=== PATIENT | female | born 1945 | race Caucasian/White ===

== ENCOUNTER 2017-01-05 08:48 | Day surgery (SDC) | payer OTHER ==
[~2017-01-05] VITALS: Ht 127 cm; Wt 38.0 kg
[~2017-01-05 08:48] MED LIST: B12-1CHW CHEW; CALCTAB98 PO; TAB-TAB PO; TIZA4 PO; TRAM50TA PO
[2017-01-05 09:10] VITALS: BP 152/80; PULSE 67; RESP 20; TEMP 98.4; O2SAT 97
[2017-01-05 09:29] VITALS: BP 152/80; PULSE 67; RESP 20; TEMP 98.4; O2SAT 97
[2017-01-05] MEDS ORDERED: CALC500T43 PO (09:49)
[2017-01-05] MEDS ORDERED: TIZA4CAP3 PO (09:49)
[2017-01-05] MEDS ORDERED: MULTTAB67 PO (09:49)
[2017-01-05] MEDS ORDERED: B12-1CHW CHEW (09:49)
[2017-01-05] MEDS ORDERED: SODIUM CHLOR 0.9% 1000 ML IV SCH (10:00)
[2017-01-05 10:02] LABS: AUTOMATED NEUTROPHIL # 3.1 TH/MM3 (1.8-7.7); BASOPHIL % 0.5 % (0.0-2.0); HEMATOCRIT 28.7 % (35.0-46.0); HEMO FLAGS DIFF FINAL; LYMPH % 10.2 % (9.0-44.0); LYMPHOCYTE # 0.4 TH/MM3 (1.0-4.8); MEAN CELL VOLUME 108.5 FL (80.0-100.0); MEAN CORPUSCULAR HEMOGLOBIN 38.7 PG (27.0-34.0); MEAN CORPUSCULAR HGB CONC 35.6 % (32.0-36.0); NEUT % 83.3 % (16.0-70.0); PLATELET COUNT 118 TH/MM3 (150-450); RED BLOOD COUNT 2.65 MIL/MM3 (4.00-5.30); RED CELL DISTRIBUTION WIDTH 13.8 % (11.6-17.2); WHITE BLOOD COUNT 3.7 TH/MM3 (4.0-11.0)
[2017-01-05] MEDS ORDERED: LIDOCAINE 1%/EPINEPHrine 1:100,000 SOLN 20 ML VIAL ONE (11:03)
[2017-01-05] MEDS ORDERED: fentaNYL CITRATE 250 MCG/5 ML AMP ONE (11:47)
[2017-01-05] MEDS ORDERED: MIDAZOLAM HCL 5 MG/5 ML VIAL ONE (11:47)
[2017-01-05 12:45] VITALS: BP 142/68; PULSE 86; RESP 18; TEMP 98.2; O2SAT 94
[2017-01-05 13:00] VITALS: BP 140/88; PULSE 86; RESP 20; O2SAT 92
[2017-01-05] MEDS ORDERED: oxyCODONE/ACETAMINOPHEN 5 MG/325 MG TAB PO PRN (13:00)
[2017-01-05 13:12] LABS: BONE MARROW PROCESSING COMPLETE; IRON STAIN DONE; JENNER GIEMSA STAIN DONE
--- NOTE | 2017-01-05 14:22 | RADRPT ---
EXAM DATE/TIME: 01/05/2017 11:53 [place] COMPARISON: CT NEEDLE BIOPSY BONE MARROW, April 20, 2016, 11:29. INDICATIONS : Leukemia. SEDATION TIME: 40 minutes BIOPSY SITE: Left Iliac MEDICATION(S): 1.) 4 mg midazolam (Versed) IV DEVICE(S): 1.) 11 gauge Bone marrow biopsy needle MEDICAL HISTORY : Leukemia. Anemia. Leukopenia. SURGICAL HISTORY : None. ENCOUNTER: Initial ACUITY: 1 day PAIN SCORE: 0/10 LOCATION: Left iliac. A total of one core specimen(s) were obtained and sent to the laboratory for pathologic evaluation. PROCEDURE: 1. CT guided bone marrow biopsy. 2. Conscious sedation with continuous EKG and oximetry monitoring. Prior to the procedure informed consent was obtained. Any appropriate prior imaging studies were rev iewed. Using automated exposure control and adjustment of the mA and/or kV according to patient size , radiation dose was kept as low as reasonably achievable to obtain optimal diagnostic quality images . The site was prepped in a sterile fashion. Full sterile technique was used, including cap, mask, saba rile gloves and gown and a large sterile sheet. Hand hygiene and 2% chlorhexidine and/or betadine/al cohol prep was utilized per protocol for cutaneous antisepsis. The skin and subcutaneous tissues wer e infiltrated with local anesthetic solution. With CT guidance the previously identified target was localized. Biopsy was performed using the presc ribed needle as above. Following biopsy marrow aspiration was performed with repeat puncture. Adequa te hemostasis was obtained with compression at the puncture site. Conscious sedation was performed with the prescribed dosages and duration as above in the presence of an independent trained radiology nurse to assist in the monitoring of the patient. EKG and oximetry remained stable throughout the procedure. The patient tolerated the procedure well and there were no complications. The patient was sent to Radiology Outpatient Unit in stable condition. CONCLUSION: 1. Uncomplicated CT guided bone marrow aspirate. 2. Uncomplicated CT guided bone marrow biopsy. Kin Box MD on January 05, 2017 at 14:21 Board Certified Radiologist. This report was verified electronically.
== END 2017-01-05 14:40 | disposition home or self-care (01) ==
LOC: HRIP 08:48 → HRAD 08:48 → EDSTATUS 09:00 → HRAD 14:40
PROVIDERS: ATTEND Internal Medicine
DX: D61.818 Other pancytopenia (principal); D64.9 Anemia, unspecified; D72.819 Decreased white blood cell count, unspecified
CPT/HCPCS: 38221; 77012; 81206; 81207; 85025; 85097; 88184; 88185; 88237; 88264; 88280; 88305; 88311; 88313; 99152; 99153; C1830; G0364; J2250; J3010; J7030

== ENCOUNTER 2018-05-04 17:34 | Observation (INO) ==
--- NOTE | 2018-05-04 19:05 | XR ---
EXAM DATE: 05/04/2018 7:03 PM EDT AGE/SEX: 72 years / Female INDICATIONS: Right side pelvic pain, fell CLINICAL DATA: This is the patient's initial encounter. Patient reports that signs and symptoms have been present for 1 day and indicates a pain score of 6/10. MEDICAL/SURGICAL HISTORY: . Leukemia. Anemia. Leukopenia . Hardware placement right hip COMPARISON: No prior exams available for comparison. FINDINGS: There are moderately displaced fractures involving the superior and inferior pubic ramus on the right . The left pelvis is grossly intact. Hips are symmetric with previous pinning on the right. CONCLUSION: Right pubic rami fractures. Electronically signed by: Kin Blandon MD 05/04/2018 7:04 PM EDT
--- NOTE | 2018-05-04 19:05 | XR ---
EXAM DATE: 05/04/2018 7:01 PM EDT AGE/SEX: 72 years / Female INDICATIONS: Evaluate chest for trauma, fell CLINICAL DATA: This is the patient's initial encounter. Patient reports that signs and symptoms have been present for 1 day and indicates a pain score of 0/10. MEDICAL/SURGICAL HISTORY: . Leukemia. Anemia. Leukopenia . Hardware placement right hip COMPARISON: [facility], XR CHEST PA AND LAT, 04/08/2016. . FINDINGS: Stable mild biapical pleural thickening. No evidence of hemothorax or pneumothorax. Lungs are focally clear. Cardiac contours are grossly stable. Thoracic skeleton intact with severe arthritic change ag ain noted in the right shoulder. CONCLUSION: No acute disease Electronically signed by: Kin Blandon MD 05/04/2018 7:03 PM EDT
--- NOTE | 2018-05-04 19:09 | ED ---
HPI General Chief Complaint: Fall Stated Complaint: Fall/Evac Time Seen by Provider: 05/04/18 18:11 Source: patient and family Mode of arrival: EMS History of Present Illness HPI Narrative: Patient is status post slip and fall on water with hitting her head. She has pain to her right wrist and hip and right side of head with laceration. complaint: fall Onset (ago): minute(s) Fall from: standing Fall witnessed: yes, by family Place fall occurred: other (Restaurant) Loss of consciousness: none Prolonged down time: no Symptoms prior to fall: none Context: tripped/slipped Location of injury: head Location of injury - extremities: Right: arm and thigh Quality: sharp Associated symptoms (after fall): denies Related Data Home Medications Medication Instructions Recorded Confirmed No Known Home Medications 05/04/18 05/04/18 Allergies Allergy/AdvReac Type Severity Reaction Status Date / Time No Known Allergies Allergy Verified 05/04/18 18:10 Review of Systems ROS Unobtainable All other systems reviewed negative except as stated in HPI COUNT INCLUDES [facility] Medical History Medical History Arthritis (Acute) Hip fracture, right (Acute) Leukemia (Acute) Family History Family History Other No family history of disorders Social History Social History Substance History: No History of Abuse Second Hand Smoke Exposure: No Smoking Status: Never smoker How Often Do You Have a Drink Containing Alcohol: 2 to 4 times a month Recent Travel in [place] within the Last 8 Weeks: No Recent Out of Country Travel within the Last 8 Weeks: No Immunization History Tetanus Immunization: >5 Years Hx Influenza Vaccine This Season: No Exam Narrative Exam Narrative: General: 72 y/o patient in no apparent distress Skin: trauma noted to right side of head with laceration Eyes: Pupils equal, eomi ENT: no septal hematoma NECK: C-collar in place Cardiovascular: Regular rate and rhythm Respiratory: Normal respiratory effort noted, clear to auscultation bilaterally Abdomen: soft, nontender, nondistended Back: No step-offs, midline spine nontender with palpation Extremities: Pain with palpation of right wrist and hip, neurovascularly intact , no pain with rom of other joints Neuro: awake, alert, sensation and motor grossly intact Procedures Laceration Laceration 1: Site: scalp Side (If applicable): right Size (cm): 2 Description: linear Depth: simple, single layer Pre-repair:: irrigated extensively and deep structures intact Skin layer closed with: other (Dermabond) Orthopedic Fracture Reduction Fracture #1: Time Out Performed: Yes Side: right Fracture Reduction Location: radius Analgesia: procedural sedation Technique: traction/counter-traction Post Reduction X-rays Demonstrate: acceptable reduction Post-Reduction Neuro Exam: intact Post-Reduction Vascular Exam: intact Splint Applied: Yes Patient Tolerated Procedure: well Procedural Sedation Indications: fracture/dislocation reduction ASA Class: ASA 2 Moderate Systemic Disease Preparation: child daycare worker applied, pulse oximeter, capnometry used, supplemental O2 applied and suction/airway equipment at bedside IV Propofol Dose (mgs): 60 Course Initial Documented Vital Signs Temperature 98 F 05/04/18 17:41 Pulse Rate 74 05/04/18 17:41 Respiratory Rate 16 05/04/18 17:41 Blood Pressure 182/86 H 05/04/18 17:41 Pulse Oximetry 98 05/04/18 17:41 Last Documented Vital Signs Temperature 98 F 05/04/18 17:41 Pulse Rate 86 05/04/18 23:03 Respiratory Rate 16 05/04/18 23:03 Blood Pressure 139/68 05/04/18 23:03 Pulse Oximetry 96 05/04/18 23:03 Sign Out Sign Out Data: Patient Sign Out occurred on 05/04/18 at 20:13. Patient's care was discussed, and care was transferred from Ama Fields MD to Gualberto Cruz MD. Sign Out Comment: follow workup and reevaluate please, laceration repair Last updated by Ama Fields MD at 05/04/18 19:10 Medical Decision Making MDM Narrative Medical decision making narrative: Laceration repaired by the undersigned. Right distal radius fracture reduced by the undersigned. Patient will be admitted. Discussed with Dr. Castro. Differential Diagnosis Differential Diagnosis: Fracture, bleed, strain Lab Data Lab results reviewed: Yes I reviewed the patient's lab results. Result diagrams: 05/04/18 18:38 05/04/18 18:38 Lab Results 05/04/18 05/04/18 Range/Units 18:38 18:38 WBC 8.1 (4.0-11.0) th/mm3 RBC 2.74 L (4.00-5.30) mil/mm3 Hgb 9.6 L (11.6-15.3) gm/dL Hct 28.6 L (35.0-46.0) % MCV 104.3 H (80.0-100.0) fL MCH 35.0 H (27.0-34.0) pg MCHC 33.5 (32.0-36.0) % RDW 12.8 (11.6-17.2) % Plt Count 187 (150-450) th/mm3 MPV 8.1 (7.0-11.0) fL Neut % (Auto) 80.2 H (16.0-70.0) % Lymph % (Auto) 12.6 (9.0-44.0) % Rabun % (Auto) 6.1 (0.0-8.0) % Eos % (Auto) 0.2 (0.0-4.0) % Baso % (Auto) 0.9 (0.0-2.0) % Neut # (Auto) 6.5 (1.8-7.7) th/mm3 Lymph # (Auto) 1.0 (1.0-4.8) th/mm3 Rabun # (Auto) 0.5 (0.0-0.9) th/mm3 Eos # (Auto) 0.0 (0.0-0.4) th/mm3 Baso # (Auto) 0.1 (0.0-0.2) th/mm3 WBC Differential . Differential Comment Auto diff final Sodium 137 (136-145) meq/L Potassium 3.5 (3.5-5.1) meq/L Chloride 103 (98-107) meq/L Carbon Dioxide 22.5 (21.0-32.0) meq/L Anion Gap 12 (5-15) meq/L BUN 13 (7-18) mg/dL Creatinine 0.48 L (0.50-1.00) mg/dL Estimated GFR Greater than 89 (>89) mL/min Random Glucose 92 (74-106) mg/dL Calcium 8.2 L (8.5-10.1) mg/dL Imaging Data Attestation: I personally reviewed and interpreted this imaging study as follows : Radiologist's impression: ITS Impressions Cervical Spine CT 05/04/18 18:25 CONCLUSION: Prominent degenerative changes with moderate multilevel spondylolisthesis. No definite acute bony injury. Head CT 05/04/18 18:25 CONCLUSION: Negative CT Head non contrast. Hip X-Ray 05/04/18 18:25 CONCLUSION: Pubic rami fractures Pelvis X-Ray 05/04/18 18:25 CONCLUSION: Right pubic rami fractures. Wrist X-Ray 05/04/18 18:25 CONCLUSION: Moderately displaced Colles' configuration distal right radial fracture and associated ulnar styloid fracture. Chest X-Ray 05/04/18 18:27 CONCLUSION: No acute disease Knee X-Ray 05/04/18 19:06 CONCLUSION: Severe arthritic changes. No definite acute bony injury Wrist X-Ray 05/04/18 21:27 CONCLUSION: Satisfactory casted appearance Discharge Plan Discharge Disposition Patient Disposition: 30 Still Patient Physicians Team ED Provider: Gualberto Cruz Primary Care Provider: Issac Russo V Attending Provider: Sylvester Castro Other Providers: Rogers Johnston Status ED Status: Admitted Observation Patient
--- NOTE | 2018-05-04 19:19 | XR ---
EXAM DATE: 05/04/2018 7:11 PM EDT AGE/SEX: 72 years / Female INDICATIONS: Right wrist pain, fell CLINICAL DATA: This is the patient's initial encounter. Patient reports that signs and symptoms have been present for 1 day and indicates a pain score of 10/10. MEDICAL/SURGICAL HISTORY: . Leukemia. Anemia. Leukopenia . . Hardware placement right hip COMPARISON: No prior exams available for comparison. FINDINGS: Moderately displaced Colles' configuration fracture of the distal right radius with roughly 1/2 shaft width dorsal displacement and some impaction. Slight ulna positive variance resulting. Mildly displa geoffrey ulnar styloid fracture. Carpals appear grossly intact. 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 CONCLUSION: Moderately displaced Colles' configuration distal right radial fracture and associated ulnar styloid fracture. Electronically signed by: Kin Blandon MD 05/04/2018 7:18 PM EDT
[2018-05-04 19:21] LABS: Baso # (Auto) 0.1 th/mm3 (0.0-0.2); Baso % (Auto) 0.9 % (0.0-2.0); Eos % (Auto) 0.2 % (0.0-4.0); Hematocrit 28.6 % (35.0-46.0); Hemoglobin 9.6 gm/dL (11.6-15.3); Lymph % (Auto) 12.6 % (9.0-44.0); Mean Corpuscular HGB Conc 33.5 % (32.0-36.0); Mean Corpuscular Volume 104.3 fL (80.0-100.0); Mean Platelet Volume 8.1 fL (7.0-11.0); Mono # (Auto) 0.5 th/mm3 (0.0-0.9); Mono % (Auto) 6.1 % (0.0-8.0); Neut # (Auto) 6.5 th/mm3 (1.8-7.7); Neut % (Auto) 80.2 % (16.0-70.0); Platelet Count 187 th/mm3 (150-450); Red Blood Count 2.74 mil/mm3 (4.00-5.30); Red Cell Distribution Width 12.8 % (11.6-17.2); White Blood Count 8.1 th/mm3 (4.0-11.0)
--- NOTE | 2018-05-04 19:23 | XR ---
EXAM DATE: 05/04/2018 7:07 PM EDT AGE/SEX: 72 years / Female INDICATIONS: Right hip pain, fell CLINICAL DATA: This is the patient's initial encounter. Patient reports that signs and symptoms have been present for 1 day and indicates a pain score of 8/10. MEDICAL/SURGICAL HISTORY: . Leukemia. Anemia. Leukopenia . . Hardware placement right hip COMPARISON: [facility], PELVIS AP 1V, 05/04/2018. . FINDINGS: Intact hardware associated with previous pinning of right hip fracture. Pubic rami fractures on the i psilateral right side. CONCLUSION: Pubic rami fractures Electronically signed by: Kin Blandon MD 05/04/2018 7:22 PM EDT
--- NOTE | 2018-05-04 19:31 | CT ---
EXAM DATE: 05/04/2018 7:24 PM EDT AGE/SEX: 72 years / Female INDICATIONS: Trauma, fall. Laceration to forehead. CLINICAL DATA: This is the patient's initial encounter. Patient reports that signs and symptoms have been present for 1 day and indicates a pain score of 6/10. MEDICAL/SURGICAL HISTORY: Leukemia. None. RADIATION DOSE: 27.07 CTDI (mGy) COMPARISON: No prior exams available for comparison. TECHNIQUE: CT of the head without contrast. Using automated exposure control and adjustment of the mA and/or kV according to patient size, radiation dose was kept as low as reasonably achievable to ob tain optimal diagnostic quality images. DICOM format image data is available electronically for revi ew and comparison. FINDINGS: Cerebrum: The ventricles are normal for age. No evidence of midline shift, mass lesion, hemorrhage or acute infarction. No extraaxial fluid collections are seen. Posterior Fossa: The cerebellum and brainstem are intact. The 4th ventricle is midline. The cerebe llopontine angle is unremarkable. Extracranial: The visualized portion of the orbits is intact. Skull: The calvaria is intact. No evidence of skull fracture. CONCLUSION: Negative CT Head non contrast. Electronically signed by: Kin Blandon MD 05/04/2018 7:30 PM EDT
[2018-05-04 19:41] LABS: Anion Gap 12 meq/L (5-15); Blood Urea Nitrogen 13 mg/dL (7-18); Calcium 8.2 mg/dL (8.5-10.1); Carbon Dioxide 22.5 meq/L (21.0-32.0); Chloride 103 meq/L (98-107); Glomerular Filtration Rate Greater Than 89 mL/min (>89); Glucose,Random 92 mg/dL (74-106); Potassium 3.5 meq/L (3.5-5.1); Sodium 137 meq/L (136-145)
--- NOTE | 2018-05-04 19:41 | CT ---
EXAM DATE: 05/04/2018 7:31 PM EDT AGE/SEX: 72 years / Female INDICATIONS: Trauma, fall. CLINICAL DATA: This is the patient's initial encounter. Patient reports that signs and symptoms have been present for 1 day and indicates a pain score of 0/10. MEDICAL/SURGICAL HISTORY: Leukemia. None. RADIATION DOSE: 9.36 CTDI (mGy) COMPARISON: No prior exams available for comparison. TECHNIQUE: Contiguous axial images were obtained using helical multirow detector technique. The vol umetric data was post-processed with multiplanar reconstruction in oblique axial, sagittal, and coron al planes. Using automated exposure control and adjustment of the mA and/or kV according to patient s ize, radiation dose was kept as low as reasonably achievable to obtain optimal diagnostic quality rosa ges. DICOM format image data is available electronically for review and comparison. FINDINGS: There is moderate left convex cervical scoliosis. There is moderate multilevel spondylolisthesis with about 4 mm of anterolisthesis of C4 relative to C5, a couple millimeters of retrolisthesis of C5 rel ative to C6 at about 3 mm anterolisthesis of C6 relative to C7. There is minimal anterolisthesis of C 7 relative to T1. These changes all appear related to severe degenerative change with posterior facet arthropathy and ligamentous laxity. No definite fracture identified. There is no significant bony ca nal compromise noted. Severe disc space narrowing is present at C4-5, C5-6 and C6-7 levels. There is no evidence of paraspinal hematoma. CONCLUSION: Prominent degenerative changes with moderate multilevel spondylolisthesis. No definite acute bony inj ury. Electronically signed by: Kin Blandon MD 05/04/2018 7:40 PM EDT
--- NOTE | 2018-05-04 19:57 | XR ---
EXAM DATE: 05/04/2018 7:43 PM EDT AGE/SEX: 72 years / Female INDICATIONS: Right proximal knee pain after fall. CLINICAL DATA: This is the patient's initial encounter. Patient reports that signs and symptoms have been present for 1 day and indicates a pain score of 1/10. MEDICAL/SURGICAL HISTORY: None. None. COMPARISON: No prior exams available for comparison. FINDINGS: There is severe tricompartmental arthritic change. Chondrocalcinosis indicates pyrophosphate arthropa thy. There is no evidence of fracture, dislocation or bony destruction. No joint effusion is present. Dense atherosclerotic vascular calcifications noted. CONCLUSION: Severe arthritic changes. No definite acute bony injury Electronically signed by: Kin Blandon MD 05/04/2018 7:56 PM EDT
[2018-05-04] MEDS ORDERED: Lidocaine 2%/Epinephrine 1:100,000 30 ML MDV INFILTRATN ONE (20:18)
[2018-05-04] MEDS ORDERED: Temazepam 15 MG Capsule PO PRN (21:43)
[2018-05-04] MEDS ORDERED: Bisacodyl 10 MG Supp RECTAL PRN (21:43)
[2018-05-04] MEDS ORDERED: Naloxone Inj 0.4 MG/ML Vial IV.PUSH PRN (21:45)
[2018-05-04] MEDS ORDERED: Acetaminophen 325 MG Tablet PO PRN (21:45)
--- NOTE | 2018-05-04 21:47 | XR ---
EXAM DATE: 05/04/2018 9:44 PM EDT AGE/SEX: 72 years / Female INDICATIONS: Post reduction. CLINICAL DATA: This is the patient's subsequent encounter. Patient reports that signs and symptoms h ave been present for 1 day and indicates a pain score of 0/10. MEDICAL/SURGICAL HISTORY: None. None. COMPARISON: [facility] [place], WRIST COMPLETE RIGHT MIN 3V, 05/04/2018. . FINDINGS: Right wrist fracture is casted with adequate reduction of fracture. Bony detail is obscured by cast m aterial. CONCLUSION: Satisfactory casted appearance Electronically signed by: Kin Blandon MD 05/04/2018 9:45 PM EDT
[2018-05-04] MEDS ORDERED: oxyCODONE/Acetaminophen 10/325 Tablet PO ONE (22:02)
[2018-05-05] MEDS ORDERED: Sodium Chlor 0.9% Inj 500 ML IV.SIG SCH (02:00)
[2018-05-05] MEDS ORDERED: Chlorhexidine Gluconate 2% 1 Pack (2 Cloths) TOPICAL SCH (02:00)
[2018-05-05] MEDS ORDERED: Metoprolol Tartrate 25 MG Tablet PO SCH (02:00)
[2018-05-05 03:39] LABS: Alanine Aminotransferase 18 U/L (10-53); Albumin 3.5 g/dL (3.4-5.0); Aspartate Aminotransferase 25 U/L (15-37)
[2018-05-05 03:42] LABS: Alcohol 68 mg/dL (0-5)
[2018-05-05 04:04] LABS: Alkaline Phosphatase 49 U/L (45-117); Total Protein 6.1 g/dL (6.4-8.2); Vitamin B12 256 pg/mL (193-986)
--- NOTE | 2018-05-05 06:49 | ECG ---
Date Performed: 05/05/2018 Time Performed: 02:41:26 PTAGE: 72 years EKG: Sinus rhythm WITH FREQUENT SUPRAVENTRICULAR PREMATURE COMPLEXES LEFT VENTRICULAR HYPERTROPHY AND ST-T CHANGE ABNO RMAL ECG Compared to prior electrocardiogram, Premature atrial contractions are present and STT wave changes are more prominent. PREVIOUS TRACING : 05/22/2015 18.36 DOCTOR: Lawson Collado Interpretating Date/Time 05/05/2018 06:48:04
--- NOTE | 2018-05-05 07:53 | MB ---
cc: Rogers Haro MD DATE: 05/05/2018 REASON FOR CONSULTATION: 1. Right distal radius fracture. 2. Right pubic rami fractures. HISTORY OF PRESENT ILLNESS: Zonia is a 72-year-old female who had a fall. She states that she was at a local restaurant with her , celebrating his birthday. She got up to go to the bathroom. She states that she slipped on a wet floor. She landed on her right side. She did hit her head. She had a laceration on her forehead and had significant bleeding. She denies dizziness, syncope or loss of consciousness. She describes a mechanical fall. Currently, she complains of right hip pain and right-sided pelvic pain. The pain is worse with standing or weightbearing. Pain is improved with rest. She is awake and alert. She could not recall the accident. PAST MEDICAL HISTORY: Illnesses, history of leukemia, arthritis, osteoporosis. PAST SURGICAL HISTORY: Right hip ORIF. ALLERGIES: NO KNOWN DRUG ALLERGIES. MEDICATIONS: No home medications. SOCIAL HISTORY: The patient denies tobacco or drug use. She drinks alcohol a couple times a month. FAMILY HISTORY: Noncontributory. She denies any familial medical problems. REVIEW OF SYSTEMS: The patient denies fevers or chills, weight loss, headache, visual changes, hearing loss, chest pain, palpitations, shortness of breath, nausea or vomiting, urinary or bowel changes, neck or back pain, skin rashes, weakness or numbness of extremities or depression or anxiety. She complains of right wrist pain and right-sided pelvic pain. LABORATORY DATA: The patient has a white blood cell count of 8.1, hematocrit of 28, platelet count of 187. Potassium is 3.5, BUN is 13, creatinine is 0.48. X-RAYS: X-rays of the right wrist were reviewed. X-rays reveal a minimally displaced, mildly impacted right distal radius fracture. X-rays of pelvis were reviewed. The patient has mildly displaced right pubic rami fractures. PHYSICAL EXAMINATION: The patient is a pleasant 72-year-old female. She is awake. She is alert and oriented x 3. HEAD: Pupils are equal. She has a small laceration over forehead. NECK: Soft, nontender. The trachea is midline. ABDOMEN: Soft, nontender, nondistended. EXTREMITIES: Examination of the right arm reveals no pain with shoulder or elbow motion. She is tender to palpation over her distal radius. She has good cap refill in all fingers. Skin is intact. Examination of the left arm reveals no pain with shoulder, elbow or wrist motion. Skin is intact. Radial pulses palpable. Sensation is intact. Examination of bilateral lower extremities reveals minimal pain with gentle hip, knee or ankle motion. Skin is intact to both feet. She has mild tenderness to palpation over her over her right-sided pubic rami. She has mild pain with pelvic compression. IMPRESSION: 1. Osteoporosis. 2. History of leukemia. 3. Minimally displaced right distal radius fracture. 4. Right-sided pubic rami fractures. PLAN: Treatment options were discussed with the patient. At this point, I would recommend nonsurgical treatment. She will need physical therapy. She will need to be nonweightbearing on her right wrist. She may weight bear as tolerated on her right leg. She will need to followup in office in 2 weeks for repeat x-rays of right wrist and pelvis. I would recommend that she start calcium and vitamin D supplementation. All questions were answered. A mid-level provider in my office, nurse practitioner or PA, may see this patient on a follow-up basis and continue to implement the objective of this plan including: Starting or adjusting medications, injections of muscle, tendon, bursa or joints, cast application, orthotic or brace application, physical therapy, further radiographic studies including x-ray, MRI, CT, ultrasounds or bone scan, vascular studies, neurologic studies, or other specialist consultations, and proceeding with surgical management as appropriate. MD FILEMON Rodriges/MAKI , 07:33 AM , 07:52 AM
--- NOTE | 2018-05-05 10:52 | P.HPIM ---
History of Present Illness Primary Care Physician: Issac Russo MD Chief Complaint: I fell History of Present Illness: 72-year-old white female with a history of leukemia, osteoarthritis, presents to the emergency room after she sustained a fall after slipping on water complaining of both right hip and right arm pain. X-rays performed in the emergency room revealed patient had a right distal radius fracture along with a right pubic ramus fracture. She has been seen by orthopedic surgery Dr. Haro who recommended conservative nonsurgical management of the fracture. At this time, patient complained of some pain. She did not lose consciousness after the fall. Inpatient Certification: I certify that the inpatient services were ordered in accordance with Medicare regulations governing the order. This includes certification that hospital inpatient services are reasonable and necessary and in the case of services not specified as inpatient-only under 42 CFR 419.22(n), that they are appropriately provided as inpatient services in accordance to with the 2-midnight benchmark under 43 CFR 412.3(e) Review of Systems All other systems reviewed negative except as stated in HPI PMFSH - History History Provided By: Patient - Medical History Medical History: Medical History (Last Updated 05/05/18 @ 10:46 by Zuleika Mosley MD) Chronic pain (Acute) Anxiety (Acute) Myocardial infarction (Acute) Arthritis (Acute) Hip fracture, right (Acute) Leukemia (Acute) Diabetes Medical history unknown Obstructive sleep apnea on CPAP Presence of orthopedic joint implant - Surgical History Surgical History: Surgical History (Last Updated 05/05/18 @ 10:47 by Zuleika Mosley MD) History of hip surgery - Family History Family History: Family History (Last Updated 05/05/18 @ 10:48 by Zuleika Mosley MD) Mother Osteoporosis Father CVA (cerebral vascular accident) - Tobacco History Second Hand Smoke Exposure: No Tobacco Use In Past 30 Days: No Smoking Status: Never smoker - Alcohol History How Often Do You Have a Drink Containing Alcohol: 2 to 4 times a month - Substance Use History Substance History: No History of Abuse - Travel History Recent Travel in the [place] Within the Last 8 Weeks: No Recent Travel Out of the Country Within the Last 8 Weeks: No - Immunization History Tetanus Immunization: Unsure Hx Influenza Vaccine This Season: No Medications and Allergies Active Medications: Active Medications Acetaminophen (Tylenol) 650 mg PO Q6HR PRN PRN Reason: PAIN SCALE 1 TO 2 Hydrocodone Bitart/Acetaminophen (Buras 5/325) 1 tab PO Q4H PRN PRN Reason: PAIN SCALE 3 TO 5 Hydrocodone Bitart/Acetaminophen (Buras 7.5/325) 1 tab PO Q4H PRN PRN Reason: PAIN SCALE 6 TO 10 Last Admin: 05/05/18 06:18 Dose: 1 tab Al Hydroxide/Mg Hydroxide (Milk Of Magnesia Liq) 30 ml PO Q12H PRN PRN Reason: Mild Constipation Bisacodyl (Dulcolax Supp) 10 mg RECTAL DAILY PRN PRN Reason: SEVERE CONSITIPATION Chlorhexidine Gluconate (Chlorhexidine 2% Cloth) 3 pack TOPICAL SHIPPING HAND [facility] Stop: 05/08/18 01:57 Lactated Ringer's (Lr 1000 Ml Inj) 1,000 mls @ 30 mls/hr IV.SIG .Q24H [facility] Stop: 05/08/18 01:57 Sodium Chloride (Ns Inj) 500 mls @ 30 mls/hr IV.SIG .Q10H [facility] Stop: 05/08/18 01:57 Lactulose (Lactulose Liq) 30 ml PO DAILY PRN PRN Reason: SEVERE CONSITIPATION Metoprolol Tartrate (Lopressor) 25 mg PO SHIPPING HAND [facility] Stop: 05/08/18 01:57 Naloxone HCl (Narcan Inj) 0.4 mg IV.PUSH UNSCH PRN PRN Reason: SEE LABEL COMMENTS Povidone Iodine (Betadine 5% Antisepsis Kit) 1 applicatio EACH NARE SHIPPING HAND [facility] Stop: 05/08/18 01:57 Sennosides (Senokot) 17.2 mg PO Q12H PRN PRN Reason: Moderate Constipation Temazepam (Restoril) 15 mg PO HS PRN PRN Reason: INSOMNIA Allergies Allergy/AdvReac Type Severity Reaction Status Date / Time No Known Allergies Allergy Verified 05/04/18 18:10 Home Medications Medication Instructions Recorded Confirmed Type Calcium 600 05/05/18 History Gleevec 05/05/18 History Zanaflex PRN 05/05/18 History Exam Vital signs: Vital Signs 05/04/18 17:41 05/04/18 18:36 05/04/18 21:15 Temperature 98 F Pulse Rate 74 86 Respiratory Rate 16 Blood Pressure 182/86 H Pulse Oximetry 98 100 05/04/18 23:03 05/04/18 23:55 05/05/18 01:38 Temperature 97.5 F L Pulse Rate 86 86 90 Respiratory Rate 16 15 18 Blood Pressure 139/68 137/66 154/70 H Pulse Oximetry 96 99 05/05/18 04:00 05/05/18 08:00 05/05/18 09:08 Temperature 98.4 F 97.7 F Pulse Rate 77 102 H Respiratory Rate 18 20 16 Blood Pressure 145/67 H 151/68 H Pulse Oximetry 97 100 Intake & Output 05/04/18 05/05/18 05/05/18 18:59 06:59 18:59 Weight 40.823 kg 41.2 kg Other: # Voids 2 Date of Last Bowel Movement 05/04/18 Weight On Admission 41.277 kg Narrative: GENERAL: Well-nourished and white female in no acute distress ambulating with assistance of physical therapy SKIN: Warm and dry. HEAD: Atraumatic. Normocephalic. EYES: Pupils equal and round. No scleral icterus. No injection or drainage. ENT: No nasal bleeding or discharge. Mucous membranes pink and moist. NECK: Trachea midline. No JVD. CARDIOVASCULAR: Regular rate and rhythm. RESPIRATORY: No accessory muscle use. Clear to auscultation. Breath sounds equal bilaterally. GASTROINTESTINAL: Abdomen soft, non-tender, nondistended. Hepatic and splenic margins not palpable. Normoactive bowel sounds MUSCULOSKELETAL: Extremities without clubbing, cyanosis, or edema. Right arm neurovascularly intact in splint bandage clean dry intact NEUROLOGICAL: Awake and alert to person place time. No obvious cranial nerve deficits. Motor grossly within normal limits. Normal speech. PSYCHIATRIC: Appropriate mood and affect; insight and judgment normal. Results - Labs CBC & Chem 7: 05/04/18 18:38 05/04/18 18:38 Labs: Short CBC 05/04/18 Range/Units 18:38 WBC 8.1 (4.0-11.0) th/mm3 Hgb 9.6 L (11.6-15.3) gm/dL Hct 28.6 L (35.0-46.0) % Plt Count 187 (150-450) th/mm3 BMP 05/04/18 18:38 Sodium 137 Potassium 3.5 Chloride 103 Carbon Dioxide 22.5 BUN 13 Creatinine 0.48 L Calcium 8.2 L Liver Function 05/04/18 05/04/18 Range/Units 18:38 18:38 Total Bilirubin 0.3 Cancelled (0.2-1.0) mg/dL Direct Bilirubin 0.1 Cancelled (0.0-0.2) mg/dL AST 25 Cancelled (15-37) U/L ALT 18 Cancelled (10-53) U/L Alkaline Phosphatase 49 Cancelled (45-117) U/L Albumin 3.5 Cancelled (3.4-5.0) g/dL - Imaging Impressions Cervical Spine CT 05/04/18 18:25 CONCLUSION: Prominent degenerative changes with moderate multilevel spondylolisthesis. No definite acute bony injury. Head CT 05/04/18 18:25 CONCLUSION: Negative CT Head non contrast. Hip X-Ray 05/04/18 18:25 CONCLUSION: Pubic rami fractures Pelvis X-Ray 05/04/18 18:25 CONCLUSION: Right pubic rami fractures. Wrist X-Ray 05/04/18 18:25 CONCLUSION: Moderately displaced Colles' configuration distal right radial fracture and associated ulnar styloid fracture. Chest X-Ray 05/04/18 18:27 CONCLUSION: No acute disease Knee X-Ray 05/04/18 19:06 CONCLUSION: Severe arthritic changes. No definite acute bony injury Wrist X-Ray 05/04/18 21:27 CONCLUSION: Satisfactory casted appearance Caprini VTE Risk Assessment Caprini VTE Risk Assessment: Moderate/High Risk (score >= 2) Caprini Risk Assessment Model: Point Value = 1 Point Value = 2 Point Value = 3 Point Value = 5 Age 41-60 Minor surgery BMI > 25 kg/m2 Swollen legs Varicose veins or History of unexplained or recurrent spontaneous Oral contraceptives or hormone replacement Sepsis (< 1 month) Serious lung disease, including pneumonia (< 1 month) Abnormal pulmonary function Acute myocardial infarction Congestive heart failure (< 1 month) History of inflammatory bowel disease Medical patient at bed rest Age 61-74 Arthroscopic surgery Major open surgery (> 45 min) Laparoscopic surgery (> 45 min) Malignancy Confined to bed (> 72 hours) Immobilizing plaster cast Central venous access Age >= 75 History of VTE Family history of VTE Factor V Leiden Prothrombin [id number] Lupus anticoagulant Anticardiolipin antibodies Elevated serum homocysteine Heparin-induced thrombocytopenia Other congenital or acquired thrombophilia Stroke (< 1 month) Elective arthroplasty Hip, pelvis, or leg fracture Acute spinal cord injury (< 1 month) Prophylaxis Regimen: Total Risk Factor Score Risk Level Prophylaxis Regimen 0-1 Low Early ambulation 2 Moderate Order ONE of the following: *Sequential Compression Device (SCD) *Heparin 5000 units SQ BID 3-4 Higher Order ONE of the following medications: *Heparin 5000 units SQ TID *Enoxaparin/Lovenox 40 mg SQ daily (WT < 150 kg, CrCl > 30 mL/min) *Enoxaparin/Lovenox 30 mg SQ daily (WT < 150 kg, CrCl > 10-29 mL/min) *Enoxaparin/Lovenox 30 mg SQ BID (WT < 150 kg, CrCl > 30 mL/min) AND/OR *Sequential Compression Device (SCD) 5 or more Highest Order ONE of the following medications: *Heparin 5000 units SQ TID (Preferred with Epidurals) *Enoxaparin/Lovenox 40 mg SQ daily (WT < 150 kg, CrCl > 30 mL/min) *Enoxaparin/Lovenox 30 mg SQ daily (WT < 150 kg, CrCl > 10-29 mL/min) *Enoxaparin/Lovenox 30 mg SQ BID (WT < 150 kg, CrCl > 30 mL/min) AND *Sequential Compression Device (SCD) Assessment and Plan - Plan 1. Status post fall sustaining right distal radius fracture and right pubic ramus fracture Right distal radius fracturenonweightbearing per orthopedic surgery Right pubic ramus fractureweightbearing as tolerated per orthopedic surgery 2. Osteoporosiscontinue with calcium and vitamin D supplements 3. Diabetes mellitus type 2, diet controlledcontinue Accu-Cheks with sliding scale insulin 4. DVT prophylaxisXarelto H&P: Quality - VTE Deep Vein Thrombosis/Pulmonary Embolism Present on Admission: No
[2018-05-05 11:39] LABS: INR 1.1 Ratio; Prothrombin Time 10.8 sec (9.8-11.6)
[2018-05-05] MEDS: Rivaroxaban 10 MG Tablet PO SCH (15:52)
--- NOTE | 2018-05-05 22:02 | P.PN ---
Subjective Interval history: NOT seen Physical Exam Vital signs: Vital Signs 05/04/18 23:03 05/04/18 23:55 05/05/18 01:38 Temperature 97.5 F L Pulse Rate 86 86 90 Respiratory Rate 16 15 18 Blood Pressure 139/68 137/66 154/70 H Pulse Oximetry 96 99 05/05/18 04:00 05/05/18 08:00 05/05/18 09:08 Temperature 98.4 F 97.7 F Pulse Rate 77 102 H Respiratory Rate 18 20 16 Blood Pressure 145/67 H 151/68 H Pulse Oximetry 97 100 05/05/18 12:19 05/05/18 16:00 05/05/18 19:18 Temperature 97.5 F L 97.9 F Pulse Rate 97 H 97 H Respiratory Rate 20 20 20 Blood Pressure 135/61 151/66 H Pulse Oximetry 100 99 Intake & Output 05/05/18 05/05/18 05/06/18 06:59 18:59 06:59 Intake Total 600 / 600 Balance 600 / 600 Weight 41.2 kg Intake: Oral 600 / 600 Other: # Voids 2 Date of Last Bowel Movement 05/04/18 # Bowel Movements 0 Weight On Admission 41.277 kg Results - Labs CBC & Chem 7: 05/04/18 18:38 05/04/18 18:38 Laboratory Results - last 24 hr 05/04/18 05/04/18 05/04/18 18:38 18:38 18:38 PT INR Sodium 137 Potassium 3.5 Chloride 103 Carbon Dioxide 22.5 Anion Gap 12 BUN 13 Creatinine 0.48 L Estimated GFR Greater than 89 Random Glucose 92 Calcium 8.2 L Total Bilirubin 0.3 Cancelled Direct Bilirubin 0.1 Cancelled Indirect Bilirubin 0.2 Cancelled AST 25 Cancelled ALT 18 Cancelled Alkaline Phosphatase 49 Cancelled Total Protein 6.1 L Cancelled Albumin 3.5 Cancelled Vitamin B12 256 Cancelled Folate 18.0 H Cancelled Serum Alcohol 68 H Cancelled 05/05/18 11:05 PT 10.8 INR 1.1 Sodium Potassium Chloride Carbon Dioxide Anion Gap BUN Creatinine Estimated GFR Random Glucose Calcium Total Bilirubin Direct Bilirubin Indirect Bilirubin AST ALT Alkaline Phosphatase Total Protein Albumin Vitamin B12 Folate Serum Alcohol - Imaging Latest Values ITS Impressions Cervical Spine CT 05/04/18 18:25 CONCLUSION: Prominent degenerative changes with moderate multilevel spondylolisthesis. No definite acute bony injury. Head CT 05/04/18 18:25 CONCLUSION: Negative CT Head non contrast. Hip X-Ray 05/04/18 18:25 CONCLUSION: Pubic rami fractures Pelvis X-Ray 05/04/18 18:25 CONCLUSION: Right pubic rami fractures. Chest X-Ray 05/04/18 18:27 CONCLUSION: No acute disease Knee X-Ray 05/04/18 19:06 CONCLUSION: Severe arthritic changes. No definite acute bony injury Wrist X-Ray 05/04/18 21:27 CONCLUSION: Satisfactory casted appearance Assessment and Plan - Plan 1. Status post fall sustaining right distal radius fracture and right pubic ramus fracture Right distal radius fracturenonweightbearing per orthopedic surgery Right pubic ramus fractureweightbearing as tolerated per orthopedic surgery 2. Osteoporosiscontinue with calcium and vitamin D supplements 3. Diabetes mellitus type 2, diet controlledcontinue Accu-Cheks with sliding scale insulin 4. DVT prophylaxisXarelto
[2018-05-05] MEDS: Calcium/Vitamin D 250/125 MG Tablet PO SCH (23:38)
[2018-05-06] MEDS ORDERED: Dextrose 50% in Water 50 ML Vial IV.PUSH PRN (09:44)
[2018-05-06] MEDS: Calcium/Vitamin D 250/125 MG Tablet PO SCH (09:47)
[2018-05-06] MEDS: Rivaroxaban 10 MG Tablet PO SCH (09:47)
--- NOTE | 2018-05-06 10:12 | P.DS ---
Date of admission: 05/04/18 21:43 Primary care physician: Issac Russo MD Brief History from admission: 72-year-old white female with a history of leukemia, osteoarthritis, presents to the emergency room after she sustained a fall after slipping on water complaining of both right hip and right arm pain. X-rays performed in the emergency room revealed patient had a right distal radius fracture along with a right pubic ramus fracture. She has been seen by orthopedic surgery Dr. Haro who recommended conservative nonsurgical management of the fracture. At this time, patient complained of some pain. She did not lose consciousness after the fall. DS: Medications - Discharge Medications Prescriptions: hydrocodone-acetaminophen 1 tab PO Q4-6H PRN 3 Days #14 tab PRN Reason: Pain Scale 6 To 10 rivaroxaban [Xarelto] 10 mg PO DAILY #30 tab DS: Summary Hospital Course: 1. Status post fall sustaining right distal radius fracture and right pubic ramus fracture Right distal radius fracturenonweightbearing per orthopedic surgery Right pubic ramus fractureweightbearing as tolerated per orthopedic surgery Pain control with Rogers PT recommending SNF, patient agreeable, case management arranging 2. Osteoporosiscontinue with calcium and vitamin D supplements 3. Prediabetes, diet controlleddiabetic diet 4. DVT prophylaxisXarelto - Time Spent with Patient Total time spent providing and/or coordinating discharge services: - Quality: VTE Deep Vein Thrombosis/Pulmonary Embolism Present on Admission: No Exam Vital signs: Vital Signs 05/05/18 12:19 05/05/18 16:00 05/05/18 19:18 Temperature 97.5 F L 97.9 F Pulse Rate 97 H 97 H Respiratory Rate 20 20 20 Blood Pressure 135/61 151/66 H Pulse Oximetry 100 99 05/05/18 20:00 05/06/18 00:00 05/06/18 04:00 Temperature 98.1 F 98.3 F 98.1 F Pulse Rate 91 H 92 H 93 H Respiratory Rate 17 17 17 Blood Pressure 139/66 140/64 150/70 H Pulse Oximetry 99 98 94 L Intake & Output 05/05/18 05/06/18 05/06/18 18:59 06:59 18:59 Intake Total 600 / 600 240 / 240 Output Total Balance 600 / 600 239 / 239 Weight 87 lb 15.431 oz Intake: Oral 600 / 600 240 / 240 Output: Urine Other: Date of Last Bowel Movement 05/04/18 # Bowel Movements 0 Narrative: GENERAL: Well-developed well-nourished. In no acute distress. SKIN: Warm and dry. No lesions noted. HEENT: Normocephalic. Pupils equal and round. Mucous membranes pink and moist. CARDIOVASCULAR: Regular rate and rhythm. 3/6 systolic murmur appreciated ( following w/ cardiology). RESPIRATORY: No accessory muscle use. Clear to auscultation. Breath sounds equal bilaterally. GASTROINTESTINAL: Abdomen soft, non-tender, nondistended. Bowel sounds x4. MUSCULOSKELETAL: No obvious deformities. No clubbing or cyanosis. No edema. NEUROLOGICAL: Awake and alert. No focal neurological deficits. Moves upper and lower extremities spontaneously. Normal speech. PSYCHIATRIC: Appropriate mood and affect; insight and judgment normal. Results Procedures completed during hospitalization: none Labs on day of discharge: Labs from last 24 hours 05/05/18 11:05 PT 10.8 INR 1.1 - Impressions ITS Impressions Cervical Spine CT 05/04/18 18:25 CONCLUSION: Prominent degenerative changes with moderate multilevel spondylolisthesis. No definite acute bony injury. Head CT 05/04/18 18:25 CONCLUSION: Negative CT Head non contrast. Hip X-Ray 05/04/18 18:25 CONCLUSION: Pubic rami fractures Pelvis X-Ray 05/04/18 18:25 CONCLUSION: Right pubic rami fractures. Chest X-Ray 05/04/18 18:27 CONCLUSION: No acute disease Knee X-Ray 05/04/18 19:06 CONCLUSION: Severe arthritic changes. No definite acute bony injury Wrist X-Ray 05/04/18 21:27 CONCLUSION: Satisfactory casted appearance Discharge Plan - Discharge Disposition Patient Disposition: 03 Discharge to SNF - Discharge Condition Condition: Stable - Discharge Order Discharge Orders: Discharge Order (Routine); Ordered 05/06/18 Ordered By: Kristofer Velásquez Team Primary Care Provider: Issac Russo V Attending Provider: Nhi Sood Other Providers: Rogers Haro MD ; [facility],[place]
[2018-05-06] MEDS ORDERED: Insulin NovoLOG Aspart Correctional Sugar Inj SQ SCH (12:00)
== END 2018-05-06 13:00 ==
LOC: N06 17:34 → NEDA 17:34 → NEPE 17:34 → NEDA 05-05 01:16 → N06 05-05 01:17
PROVIDERS: ADMIT Hospitalist; ATTEND Hospitalist